=== PATIENT | female | born 1955 | race Caucasian/White ===

== ENCOUNTER 2019-09-13 15:15 | Outpatient (CLI) | payer MEDICARE, BC ==
[~2019-09-13 15:15] MED LIST: BIOT1CAP3 PO; BUPR300T49 PO; CETI10CA PO; CYCL7.5T25 PO; GABA300C10 PO; IBUP100O32 PO; METH750T87 PO; OXYC-307 PO
== END 2019-09-13 23:59 | disposition home or self-care (01) ==
LOC: CVU 15:15
PROVIDERS: ATTEND Internal Medicine Cardiovascular Disease
DX: I08.1 Rheumatic disorders of both mitral and tricuspid valves (principal); J44.9 Chronic obstructive pulmonary disease, unspecified; R00.0 Tachycardia, unspecified
CPT/HCPCS: 93306; 94060; 94726; 94729

== ENCOUNTER → 2020-07-16 | Outpatient (CLI) | payer MEDICARE, OTHER ==
[~2020-07-16] MED LIST changes: -OXYC-307 PO; +OXYC-380 PO
== END | disposition home or self-care (01) ==
LOC: CFH 15:49
PROVIDERS: ATTEND Registered Nurse
DX: Z12.2 Encounter for screening for malignant neoplasm of respiratory organs (principal); J43.9 Emphysema, unspecified; I25.10 Atherosclerotic heart disease of native coronary artery without angina pectoris; R91.8 Other nonspecific abnormal finding of lung field; M48.54XA Collapsed vertebra, not elsewhere classified, thoracic region, initial encounter for fracture; F17.211 Nicotine dependence, cigarettes, in remission
CPT/HCPCS: 71271

== ENCOUNTER 2020-09-13 17:22 | Emergency (ER) | payer MEDICARE ==
[~2020-09-13] VITALS: Ht 162.6 cm; Wt 79.0 kg
--- NOTE | 2020-09-13 18:38 | NUR ---
[facility] BI ADMINISTRATOR: PT TO ROOM FROM LOBBY VIA W/C
--- NOTE | 2020-09-13 19:08 | NUR ---
BEDSIDE REPORT RECEIVED FROM DRISS RN, PT CARE TRANSFERRED AT THIS TIME. PT DENIES ADDITIONAL QUESTIONS OR NEEDS, BED IN LOWEST, RAILS ENGAGED, CALL LIGHT ON LAP, AWAITING ERP ORDERS, WCTM. pt provided bedside commode to use restroom, pt had a small formed bowel movement. NAD. provided socks and ice for comfort.
[2020-09-13 19:30] LABS: BASOPHILS % (AUTO) 1 % (0-1); EOSINOPHILS % (AUTO) 5 % (1-7); LYMPHOCYTES % (AUTO) 11 % (22-44); MEAN CORPUSCULAR HEMOGLOBIN 32.8 pg (27.0-34.8); MEAN CORPUSCULAR HGB CONC 32.9 g/dL (32.4-35.8); MEAN PLATELET VOLUME 7.5 fL (7.4-10.4); MONOCYTES % (AUTO) 10 % (2-9); NEUTROPHILS % (AUTO) 73 % (42-75); PLATELET COUNT 201 x10^3/uL (130-400); RED BLOOD COUNT 3.97 x10^6/uL (3.82-5.3); RED CELL DISTRIBUTION WIDTH 15.2 % (9.6-15.2)
[2020-09-13 19:41] LABS: ALBUMIN 3.5 g/dL (3.4-5.0); ANION GAP 10 mmol/L (5-15); CALCIUM 8.5 mg/dL (8.5-10.1); CHLORIDE 99 mmol/L (98-107); CREATININE 1.44 mg/dL (0.55-1.02)
--- NOTE | 2020-09-13 20:20 | NUR ---
PT RESTING ON GURNEY, BED IN LOWEST, RAILS ENGAGED. CALL LIGHT ON LAP, NAD, APPEARS COMFORTABLE, NO CHANGE IN CONDITION, PROVIDED WARM BLANKETS FOR COMFORT. VSS. WAITING FOR US READ, WCTM.
--- NOTE | 2020-09-13 21:35 | NUR ---
Patient is resting comfortably in bed. Bed in lowest, rails engaged, call light on lap. Vital Signs within normal limits. WCTM. WAITING FOR US/RAD READ.
[2020-09-13 22:29] VITALS: BP 128/72
[2020-09-13] MEDS ORDERED: CEPHALEXIN 500 MG CAPSULE ONE (22:38)
--- NOTE | 2020-09-13 22:55 | NUR ---
Patient given discharge instructions and they have confirmed that they understand the instructions. Patient ambulatory with steady gait. NAD, all questions answered appropriately, denies additional needs at this time. No personal belongings left in room after discharge.
[2020-09-13] MEDS ORDERED: CEPHALEXIN 500 MG CAPSULE PO ONE (23:00)
== END 2020-09-13 22:56 | disposition home or self-care (01) ==
LOC: ED 22:36
DX: L03.116 Cellulitis of left lower limb (principal); F17.210 Nicotine dependence, cigarettes, uncomplicated; J44.9 Chronic obstructive pulmonary disease, unspecified
CPT/HCPCS: 36415; 80048; 82040; 85025; 99285; 99406

== ENCOUNTER 2020-10-18 18:07 | Inpatient (IN) | payer MEDICARE ==
[2020-10-18] VITALS (11 sets, daily range): BP systolic 89–119; BP diastolic 47–65
[~2020-10-18] VITALS: Ht 162.6 cm; Wt 95.7 kg
--- NOTE | 2020-10-18 18:17 | NUR ---
ASSUMED CARE OF PATIENT. PATIENT BIB [facility] FROM HOME AFTER BEING FOUND HYPOTENSIVE. PT REPORTS BLOODY/DARK STOOL. PT DISCHARGED FROM [facility] YESTERDAY WITH A GI BLEED. EKG DONE. [employer] SUPERVISOR ON. NSR NOTED. CALL LIGHT IN PLACE PLACE. WILL CONTINUE TO MONITOR.
[2020-10-18 18:29] LABS: BASOPHILS % (AUTO) 1 % (0-1); EOSINOPHILS % (AUTO) 3 % (1-7); LYMPHOCYTES % (AUTO) 10 % (22-44); MEAN CORPUSCULAR HEMOGLOBIN 32.2 pg (27.0-34.8); MEAN CORPUSCULAR HGB CONC 33.4 g/dL (32.4-35.8); MEAN PLATELET VOLUME 7.5 fL (7.4-10.4); MONOCYTES % (AUTO) 6 % (2-9); NEUTROPHILS % (AUTO) 80 % (42-75); PLATELET COUNT 236 x10^3/uL (130-400); RED BLOOD COUNT 2.18 x10^6/uL (3.82-5.3); RED CELL DISTRIBUTION WIDTH 15.3 % (9.6-15.2)
[2020-10-18] MEDS ORDERED: SODIUM CHLORIDE 0.9% 1,000ML IVBOLUS ONE (18:30)
--- NOTE | 2020-10-18 18:30 | NUR ---
PT HAD LARGE BLACK STOOL, PT CLEANED. PT ALERT AND TALKING. VS STABLE. CALL LIGHT IN PLACE. WILL CONTINUE TO MONITOR.
[2020-10-18 18:41] LABS: ALBUMIN 1.8 g/dL (3.4-5.0); ANION GAP 6 mmol/L (5-15); CALCIUM 7.1 mg/dL (8.5-10.1); CHLORIDE 105 mmol/L (98-107)
[2020-10-18 18:44] LABS: ALKALINE PHOSPHATASE 69 U/L (45-117); BILIRUBIN,TOTAL 0.5 mg/dL (0.2-1.0); TOTAL PROTEIN 4.5 g/dL (6.4-8.2)
[2020-10-18 18:49] LABS: INTERNATIONAL NORMALIZED RATIO 1.27 (0.93-1.1); PROTHROMBIN TIME 13.4 Seconds (9.6-11.5)
[2020-10-18 18:51] LABS: ALANINE AMINOTRANSFERASE < 6 U/L (12-78)
--- NOTE | 2020-10-18 18:58 | NUR ---
SISTER AT BEDSIDE.
[2020-10-18] MEDS ORDERED: GABA600T7 PO (18:59)
[2020-10-18] MEDS ORDERED: FLUTICASONE (19:00)
[2020-10-18] MEDS ORDERED: ALBUTEROL (19:00)
[2020-10-18] MEDS ORDERED: CALC500T29 PO (19:01)
[2020-10-18] MEDS ORDERED: ATOR20TA37 PO (19:01)
[2020-10-18] MEDS ORDERED: PANT40TA6 PO (19:02)
[2020-10-18] MEDS ORDERED: METOPROLOL (19:02)
[2020-10-18] MEDS ORDERED: SUCR1TAB PO (19:03)
--- NOTE | 2020-10-18 19:12 | NUR ---
DR ALSTON HAS WENT OVER BLOOD WITH THE PATIENT. CONSENT SIGNED. VS STABLE. DIRECTOR OF PEDIATRIC REHABILITATION ON. FAMILY AT BEDSIDE. CALL LIGHT IN PLACE. WILL CONTINUE TO MONITOR.
--- NOTE | 2020-10-18 19:28 | NUR ---
DR BARTLETT AWARE OF VS. FAMILY AT BEDSIDE. BLOOD CHECKED WITH TAMARA Hoskins RN. WILL CONTINUE TO MONITOR.
--- NOTE | 2020-10-18 19:56 | NUR ---
DR ALSTON TO BEDSIDE, PT WILL GO TO [facility]. PT AGREES.
[2020-10-18] MEDS ORDERED: PANTOPRAZOLE 80 MG in SODIUM CHLORIDE 0.9% 50 ML IVPB ONE (20:00)
--- NOTE | 2020-10-18 20:14 | NUR ---
XRAY IN ROOM
--- NOTE | 2020-10-18 20:19 | NUR ---
DR ALSTON ONLY WANTS ONE UNIT OF BLOOD GIVEN BEFORE IR.
[2020-10-18] MEDS ORDERED: FENTANYL PF 100 MCG/2ML IV ONE (20:30)
--- NOTE | 2020-10-18 20:33 | NUR ---
GI DOCTOR IN ROOM
[2020-10-18] MEDS ORDERED: FENTANYL PF 100 MCG/2ML ONE (20:45)
[2020-10-18] MEDS ORDERED: MIDAZOLAM 1 MG/ML, 5ML ONE (20:45)
[2020-10-18] MEDS ORDERED: NALOXONE 1 MG/ML, 2ML ONE (20:45)
[2020-10-18] MEDS ORDERED: FLUMAZENIL 0.1 MG/1 ML, 5ML ONE (20:45)
[2020-10-18] MEDS: PANTOPRAZOLE 80 MG in SODIUM CHLORIDE 0.9% 100 ML IV SCH ×2 (20:51→22:03)
[2020-10-18] MEDS ORDERED: CEFTRIAXONE 1,000 MG in DEXTROSE 5% 50 ML IVPB SCH (21:00)
[2020-10-18] MEDS ORDERED: ONDANSETRON 2MG/ML, 2ML IVPush PRN (21:00)
--- NOTE | 2020-10-18 21:08 | NUR ---
BLOOD STILL TRANSFUSING AT TIME OF TRANSFER TO IR. REPORT GIVEN TO [facility] [place] IR NURSE.
[2020-10-18] MEDS ORDERED: LIDOCAINE 1%, 10ML ONE (21:09)
[2020-10-18] MEDS ORDERED: VISIPAQUE 270 MG/ML, 50ML BOTTLE ONE (21:38)
[2020-10-18] MEDS ORDERED: VISIPAQUE 270 MG/ML, 150ML BOTTLE ONE (21:38)
--- NOTE | 2020-10-18 21:43 | NUR ---
PER HOSPITALIST GIVE SECOND UNIT OF BLOOD.
[2020-10-18] MEDS: NICOTINE 14MG/24 HR PATCH.TD24 TD SCH (23:20)
[2020-10-18] MEDS: morphine SULFATE 10 MG/ML, 1ML IVPush PRN (23:21)
[2020-10-19] MEDS ORDERED: PANTOPRAZOLE 80 MG in SODIUM CHLORIDE 0.9% 100 ML IV SCH
[2020-10-19 00:47] VITALS: BP 116/58
[2020-10-19 01:49] VITALS: BP 110/53
[2020-10-19] MEDS: morphine SULFATE 10 MG/ML, 1ML IVPush PRN ×2 (04:35→08:09)
[2020-10-19 04:44] LABS: BASOPHILS % (AUTO) 0 % (0-1); EOSINOPHILS % (AUTO) 4 % (1-7); LYMPHOCYTES % (AUTO) 4 % (22-44); MEAN CORPUSCULAR HGB CONC 33.6 g/dL (32.4-35.8); MEAN PLATELET VOLUME 7.7 fL (7.4-10.4); MONOCYTES % (AUTO) 5 % (2-9); NEUTROPHILS % (AUTO) 87 % (42-75); PLATELET COUNT 199 x10^3/uL (130-400); RED BLOOD COUNT 3.32 x10^6/uL (3.82-5.3); RED CELL DISTRIBUTION WIDTH 17.4 % (9.6-15.2)
[2020-10-19 04:57] LABS: ANION GAP 7 mmol/L (5-15); CALCIUM 7.4 mg/dL (8.5-10.1); CHLORIDE 105 mmol/L (98-107)
[2020-10-19 04:58] LABS: CREATININE 0.58 mg/dL (0.55-1.02)
[2020-10-19] MEDS: GABAPENTIN 300 MG CAPSULE PO SCH ×3 (08:48→21:59)
[2020-10-19] MEDS: OXYcodone IR 5MG TABLET PO PRN ×4 (08:49→22:34)
[2020-10-19] MEDS: PANTOPRAZOLE 40MG TABLET PO SCH (17:17)
[2020-10-19 19:46] VITALS: BP 103/64
[2020-10-19] MEDS: ATORVASTATIN 20 MG TABLET PO SCH (21:59)
[2020-10-19] MEDS: NICOTINE 14MG/24 HR PATCH.TD24 TD SCH (23:30)
[2020-10-20 00:55] VITALS: BP 100/69
[2020-10-20] MEDS: OXYcodone IR 5MG TABLET PO PRN ×4 (02:43→19:51)
[2020-10-20] MEDS: PANTOPRAZOLE 40MG TABLET PO SCH ×2 (05:21→17:40)
[2020-10-20 05:28] LABS: BASOPHILS % (AUTO) 1 % (0-1); EOSINOPHILS % (AUTO) 8 % (1-7); LYMPHOCYTES % (AUTO) 17 % (22-44); MEAN CORPUSCULAR HEMOGLOBIN 31.4 pg (27.0-34.8); MEAN CORPUSCULAR HGB CONC 33.9 g/dL (32.4-35.8); MEAN PLATELET VOLUME 7.9 fL (7.4-10.4); MONOCYTES % (AUTO) 10 % (2-9); NEUTROPHILS % (AUTO) 64 % (42-75); PLATELET COUNT 201 x10^3/uL (130-400); RED BLOOD COUNT 2.71 x10^6/uL (3.82-5.3); RED CELL DISTRIBUTION WIDTH 17.1 % (9.6-15.2)
[2020-10-20 05:44] LABS: CHLORIDE 104 mmol/L (98-107)
[2020-10-20 05:50] LABS: ANION GAP 5 mmol/L (5-15); CALCIUM 7.6 mg/dL (8.5-10.1); CREATININE 0.47 mg/dL (0.55-1.02)
[2020-10-20] MEDS ORDERED: POTASSIUM CHLORIDE 20 MEQ TAB.ER.PRT PO ONE (07:00)
[2020-10-20 07:46] VITALS: BP 102/64
[2020-10-20] MEDS: GABAPENTIN 300 MG CAPSULE PO SCH ×3 (08:57→21:20)
[2020-10-20 12:43] VITALS: BP 112/67
[2020-10-20] MEDS ORDERED: ALBUTEROL HFA 90 MCG/SPRAY INH PRN (13:30)
[2020-10-20] MEDS ORDERED: DIPHENHYDRAMINE 25 MG CAPSULE PO PRN (13:30)
[2020-10-20] MEDS ORDERED: FLUORESCEIN/BENOXINATE 5 ML DROPS OP PRN (13:30)
[2020-10-20 13:34] VITALS: BP 118/69
[2020-10-20] MEDS ORDERED: ALBUTEROL SULFATE 2.5 MG/3 ML NPPB PRN (14:00)
[2020-10-20] MEDS ORDERED: ARTIFICIAL TEARS 15 DROP/ML BOTTLE OP PRN (15:00)
[2020-10-20] MEDS: ACYCLOVIR 400 MG TABLET PO SCH ×2 (17:40→21:20)
[2020-10-20 19:52] VITALS: BP 135/70
[2020-10-20] MEDS: NICOTINE 14MG/24 HR PATCH.TD24 TD SCH (21:20)
[2020-10-20] MEDS: ATORVASTATIN 20 MG TABLET PO SCH (21:20)
[2020-10-21] MEDS: OXYcodone IR 5MG TABLET PO PRN ×3 (00:54→10:26)
[2020-10-21 01:00] VITALS: BP 121/59
[2020-10-21 05:06] LABS: BASOPHILS % (AUTO) 0 % (0-1); EOSINOPHILS % (AUTO) 8 % (1-7); LYMPHOCYTES % (AUTO) 20 % (22-44); MEAN CORPUSCULAR HEMOGLOBIN 31.5 pg (27.0-34.8); MEAN CORPUSCULAR HGB CONC 33.9 g/dL (32.4-35.8); MEAN PLATELET VOLUME 7.5 fL (7.4-10.4); MONOCYTES % (AUTO) 11 % (2-9); NEUTROPHILS % (AUTO) 61 % (42-75); PLATELET COUNT 216 x10^3/uL (130-400); RED BLOOD COUNT 2.64 x10^6/uL (3.82-5.3)
[2020-10-21 05:15] LABS: ANION GAP 8 mmol/L (5-15); CALCIUM 7.6 mg/dL (8.5-10.1); CHLORIDE 107 mmol/L (98-107); CREATININE 0.49 mg/dL (0.55-1.02)
[2020-10-21] MEDS: PANTOPRAZOLE 40MG TABLET PO SCH (05:53)
[2020-10-21 07:16] VITALS: BP 111/72
[2020-10-21] MEDS: GABAPENTIN 300 MG CAPSULE PO SCH ×2 (08:32→15:43)
[2020-10-21] MEDS: ACYCLOVIR 400 MG TABLET PO SCH ×2 (08:32→15:43)
[2020-10-21] MEDS ORDERED: FLUTICASONE NASAL SPRAY 16GM NAS SCH (09:00)
[2020-10-21 13:01] VITALS: BP 144/76
[2020-10-21] MEDS ORDERED: ACYC-40 PO (13:51)
[2020-10-21] MEDS ORDERED: PANT40TA6 PO (13:51)
== END 2020-10-21 17:23 | disposition home health service (06) | DRG 356 ==
LOC: ED 21:14 → EDIP 21:22 → CCU 22:40 → 3N 10-19 19:22
PROVIDERS: ADMIT Internal Medicine; ATTEND Internal Medicine
PROC: 30233N1 Transfusion of Nonautologous Red Blood Cells into Peripheral Vein, Percutaneous Approach (ICD-10-PCS; principal; 2020-10-18)
PROC: 04L23DZ Occlusion of Gastric Artery with Intraluminal Device, Percutaneous Approach (ICD-10-PCS; 2020-10-18)
PROC: B41J1ZZ Fluoroscopy of Other Lower Arteries using Low Osmolar Contrast (ICD-10-PCS; 2020-10-18)
DX: K26.4 Chronic or unspecified duodenal ulcer with hemorrhage (principal); R57.8 Other shock; D62 Acute posthemorrhagic anemia; J96.11 Chronic respiratory failure with hypoxia; E46 Unspecified protein-calorie malnutrition; J44.9 Chronic obstructive pulmonary disease, unspecified; B00.9 Herpesviral infection, unspecified; D72.829 Elevated white blood cell count, unspecified; E83.51 Hypocalcemia; E87.6 Hypokalemia; F17.210 Nicotine dependence, cigarettes, uncomplicated; G89.29 Other chronic pain; I10 Essential (primary) hypertension; I25.10 Atherosclerotic heart disease of native coronary artery without angina pectoris; K21.9 Gastro-esophageal reflux disease without esophagitis; M19.90 Unspecified osteoarthritis, unspecified site; M81.0 Age-related osteoporosis without current pathological fracture; R53.83 Other fatigue; Z68.36 Body mass index [BMI] 36.0-36.9, adult; Z90.49 Acquired absence of other specified parts of digestive tract; Z88.2 Allergy status to sulfonamides
CPT/HCPCS: 36415; 36430; 37244; 71045; 80048; 80053; 83690; 85014; 85018; 85025; 85610; 85730; 86850; 86900; 86923; 87081; 87338; 93005; 94640; 96374; 96375; 96376; 99156; 99157; G0378; J0696; J2250; J3010; J7613; Q9966; C1751; C1760; C1769; C9113; J2270; J2310; J7030; P9016; Q0163